=== PATIENT | female | born 1950 | race Caucasian/White ===

== ENCOUNTER 2023-05-06 06:55 | Outpatient (CLI) | payer MEDICARE, OTHER | END 2023-05-06 06:56 | disposition home or self-care (01) | LOC: BICULT 06:55 | PROVIDERS: ATTEND Family Medicine | DX: R10.11 Right upper quadrant pain (principal) | CPT/HCPCS: 76705 ==

== ENCOUNTER 2023-07-04 13:13 | Outpatient (CLI) | payer MEDICARE, OTHER | END 2023-07-04 13:14 | disposition home or self-care (01) | LOC: NM 13:13 → EDSEX 13:30 | PROVIDERS: ATTEND Internal Medicine Gastroenterology | DX: R10.11 Right upper quadrant pain (principal); K30 Functional dyspepsia | CPT/HCPCS: 78227; A9537 ==

== ENCOUNTER 2023-07-20 08:06 | Outpatient (CLI) | payer MEDICARE, OTHER | END 2023-07-20 08:07 | disposition home or self-care (01) | LOC: CT 08:06 | PROVIDERS: ATTEND Internal Medicine Gastroenterology | DX: R10.11 Right upper quadrant pain (principal) | CPT/HCPCS: 74177; 82565 ==